=== PATIENT | male | born 1975 | race Caucasian/White ===

== ENCOUNTER 2025-06-11 10:42 | Outpatient (CLI) | payer OTHER, SELFPAY ==
--- OUTSIDE RECORDS SUMMARY | 2014-04-07 04:25 | XMS_ITS | Continuity of Care Document ---
Author Organization [facility] Address [address] [place] [address] [place] [address] Phone Care Team Providers Care Inspector Canvas Products Name Role Phone Nelson Wheeler MD Unavailable Unavailable Allergies, Adverse Reactions, Alerts Substance Reaction Status Criticality KETOROLAC TROMETHAMINE Active No In formation morphine Active No Information Medications Medication Instructions Dosage Effective Dates (start - stop) Status Comments [place] 5 mg-325 mg tablet take 1 tablet [...] Diagnoses Date Provider Providers Copied on Encounter [facility], [address] [place], [address], tel:[phone] [facility] No Information 4 Liam Damon. [address] [place], [address] , [place]. tel:[phone] Referring Provider: Nelson Wheeler, [address] [facility] [address], [place], [place], [address]. tel:[phone] OFFICE/OUTPA TIENT VISIT, EST [facility], [address], [place], [place], [address], tel:[phone] [facility] back pain (chief complaint) anxiety (chief complaint) LumbagoGeneralized anxiety disorder 4 Liam Damon. [address], [place], [place], [address] , [place]. [phone] Referring Provider: Nelson Wheeler, [address], [place], [place], [address]. tel:[phone] OFFICE/OUTPA TIENT VISIT, EST [facility], [address], [place], [place], [address], [place] tel:[phone] [facility] back pain (chief complaint) anxiety (chief complaint) LumbagoGeneralized anxiety disorder 0 4 Liam Damon. [address], [place], [place], [address] , [place]. [phone] Referring Provider: Pau [address], [place], [place], [address]. tel:[phone] PREV VISIT, NEW, AGE 18-39 [facility], [address], [place], [place], [address], [place] tel:[phone] [facility] Physical (chief complaint) Routine Medical ExamHeadacheFamily history of malignant neoplasm of gastrointestinal tractRoutine Medical ExamGoiter, unspecified 4 Liam Damon. [address], [place], [place], [address] , [place]. [phone] Family History Family Member Type Diagnosis Age At Onset Mother Problem (finding) thyroid Sister Problem (finding) Cancer - colon polyp Father Problem (finding) Cancer, colon Payers Payer name Insurance type Covered libertarian ID Authoriza tion(s) No Information Social History [...]
--- OUTSIDE RECORDS SUMMARY | 2024-12-27 12:23 | XMS_ITS | Continuity of Care Document ---
Author Organization [facility] Address [address] [place] [address] Phone Care Team Providers Care Morale Officer Name Role Phone Shyla Alva MD Unavailable Unavailable Advance Directives Directive Yes / No Effective Date File Name No Information Encounters Encounter Description Practice Location Reason(s) For Visit Diagnoses Date Provider Providers Copied on Encounter [facility], [address], [place], [place], [address], tel:[phone] [facility] No Information Nida Mansfield. [address] [place] [address], [id number], . tel:[phone] Family History Family Member Type Diagnosis Age At Onset No Information Payers Payer name Insurance type Covered alliance [...]
--- OUTSIDE RECORDS SUMMARY | 2025-02-15 08:00 | XMS_ITS ---
Author Organization [facility] Address [address] [facility] [address] [place] [address] Care Team Providers Care Upsetter Helper Name Role Phone Otoniel Mendez MD Primary Care Provider Andrew Grewal Unavailable [phone] REASON FOR VISIT Screening, 6ft1 200 Medications Medication SIG (Take, Route, Frequency, Duration) Notes Start Date End Date Status Pantoprazole Sodium 40 MG 1 tablet 1/2 t o 1 hour before morning meal and at night Orally twice a day for 30 day(s) 01/30/2025 Active Na Sulfate-K Sulfate-Mg Sulf 17.5-3.13-1.6 GM/177ML ML Orally Twice a day,Follow Physician Instructions. for 1 days 01/30/2025 Active amLODIPine Besylate Active Famotidine Active Losartan Potassium A ctive Omeprazole Active Pantoprazole Sodium Active Encounters Encounter Location Date Provider Diagnosis [facility] [address] [place] [address] 02/15/2025 Andrew Krishna Plan Of Treatment No Information Progress Notes * DIANE, Ti MoodyDOB:1974 (50 yo M)Acc No.[id number]:02/15/2025 Patient: Ti BALDERRAMA Provider: Fransisco Krishna D.O. :1975 A ge:49 Y S ex:Male Date:02/15/2025 Address:[address] [place] [address] [id number] Pcp:Otoniel Mendez MD Subjective: * Chief Complaints: * 1 . Screening, 6ft1 200. * Medical History: * Medications: T aking Omeprazole , Taking Pantoprazole Sodium , Taking Famotidine , Taking Losartan Potassium , Taking amLODIPine Besylate , Taking Pantoprazole Sodium 40 MG Tablet Delayed Release 1 tablet 1/2 to 1 hour before morning meal and at night Orally twice a day , Taking Na Sulfate-K Sulfate-Mg Sulf 17.5-3.13-1.6 GM/177ML Solution ML Orally Twice a day,Follow Physician Instructions. Objective: * Vitals: Assessment: Plan: * Treatment: * Images: * Electronic signature of Gene Krishna DO on 06/11/2025 at 01:06 PM CDT Sign off status: Pending * Provider: Fransisco Krishna D.O. Date: 0 02/15/2025 Generated for Steven pinto/Jono/Kris on: 0 06/11/2025 01:06 PM CDT
--- NOTE | 2025-06-11 11:23 | ECG_ITS ---
Test Date: 2025-06-11 11:35:39 Measurements Intervals [place] Rate: 90 P: -4 CA: 159 QRS: 17 QRSD: 102 T: 39 QT: 367 QTc: 449 Interpretive Statements SINUS RHYTHM NORMAL ELECTROCARDIOGRAM No previous ECG available for comparison Electronically Signed On 06-12-2025 15:44:35 CDT by Patrice Diaz M.D.
--- OUTSIDE RECORDS SUMMARY | 2025-06-11 13:06 | XMS_ITS | Clinical Summary ---
Author Organization [facility] Address [address] [place] [address] Care Team Providers Care Derrick Helper Name Role Phone Unavailable Primary Care Provider Unavailabl e Source Comments [facility] [employer],non-owned Affiliates and Associated Physician Practices is amultiple site organization consisting of ambulatory clinics and hospital sitesin [place], [place], [place] and [place]. This disclosure is being madepursuant to the Care Everywhere program and may not contain all information available regarding this patient. Last updated 18.[facility] [employer] Allergies No known active allergies Medications * Be aware that medications may not be up to date on this document. Alwaysverify current medications with the patient. oxyCODONE-aceta minophen (PERCOCET) 5-325 MG tablet Take 1 tablet by mouth every 8 hours as needed Earliest Fill Date: 04/28/19 9 tablet 04/28/2019 Active Active Problems Problem Noted Date Diagnosed Date Cellulitis of left upper extremity 04/21/2019 Swelling of left hand 04/21/2019 Infection of finger Family History Medical History Relation Name Comments Cancer - Colon Father Hypertension Father Cancer - Esophageal Paternal Grandfather Relation Name Status Comments Father Alive Paternal Grandfather Social History Tobacco Use Types Packs/Day Years Used Date Smoking Tobacco: Every Day Cigarettes 0.3 20 Smokeless Tobacco: Never Alcohol Use Standard Drinks/Week Comments No 0 (1 standard drink = 0.6 oz pur e alcohol) Sex and Gender Information Value Date Recorded Sex Assigned at Not on file Legal Sex Male 9:35 AM CDT Gender Identity Not on file Sexual Orientation Not on file Last Filed Vital Signs Vital Sign Reading Time Taken Comments Blood Pressure 134/100 04/28/2019 1:04 PM CDT Pulse 95 04/28/2019 8:55 AM CDT Temperature 36.8 C (98.2 F) 04/28/2019 8:55 AM CDT Respiratory Rate 18 04/28/2019 8:55 AM CDT Oxygen Saturation 98% 04/28/2019 8:55 AM CDT Inhaled Oxygen Concentration - - Weight 83.1 kg (183 lb 3.2 oz) 04/21/2019 5:57 P M CDT Height 185.4 cm (6' 1) 04/21/2019 5:57 PM CDT Body Mass Index 24.17 04/21/2019 5:57 PM CDT Plan of Treatment Health Maintenance Due Date Last Done Comments COLOGUARD (AGES 45-75) - COL ON CA SCREENING 1975 COLON MONITORING 1974 COLONOSCOPY - COLON CA SCREENING 1974 CT COLONOGRAPHY - COLON CA SCREENING 1975 Colorectal Cancer Screening 1974 FIT - COLON CA SCREENING 1974 FLEX SIG - COLON CA SCREENING 1974 LIPID TESTING 1974 HIV SCREENING 1989 HEPATITIS C SCREENING 03/28/1992 DTAP/TDAP/TD VACCINES (1 - Tdap) 1993 HEPATITIS B VACCINE (1 of 3 - 19+ 3-dose series) 1993 PNEUMOCOCCAL VACCINE 50+ (1 of 1 - PCV) 2024 ZOSTER VACCINE (1 of 2) 2024 COVID-19 VACCINE (1 - 2023-2 5 season) 2024 DEPRESSION SCREENING 10/03/2024 INFLUENZA VACCINE (#1) 2025 HIB VACCINE Aged Out No longer eligi ble based on patient's age to complete this topic HPV VACCINE Aged Out No longer eligi ble based on patient's age to complete this topic MENINGOCOCCAL (Group B) VACC INE SHARED DECISION-MAKING Aged Out No longer eligibl e based on patient's age to complete this topic MENINGOCOCCAL GROUPS A/C/Y/W VACCINE Aged Out No longer eligible b ased on patient's age to complete this topic Advance Directives * Full Code (Latest Code Status on File) Date Activated Date Inactivated Comments 04/21/2019 5:03 PM 04/28/2019 4:39 PM
--- OUTSIDE RECORDS SUMMARY | 2025-06-11 13:07 | XMS_ITS | Patient Health Record ---
Author Organization [employer] Address [address] [facility] [facility] [address] [place] [address] Care Team Providers Care Personal Consultant Name Role Phone Otoniel Mendez MD Primary Care Provider Andrew Grewal Unavailable [phone] Darlene De La Paz Unavailable [phone] Allergies No Known Allergies Results Component Value Reference Range Notes Pathology Report Reviewed date:02/18/2025 08:02:11 AM Interpretation: Performing Lab: Notes/Report: DIAGNOSES A. GE Junction Polyp, Biopsy: -Mild acute esophagitis (see comment). -Alcian blue/PAS stain highlights a thickened squamous basal layer; no fungal organisms seen. -No viral inclusions seen. -No glandular mucosa seen. -No significant eosinophils seen. -Negative for dysplasia and malignancy. COMMENTS A. A. A. In the absence of viral inclusions and fungal organisms, acute esophagitis may be seen in severe gastroesophageal reflux or pill esophagitis. CLINICAL HISTORY Suspected gastroesophageal reflux disease. Mucosal nodule found at the GEJ. GROSSING DESCRIPTION A. The specimen is received in a Formalin-filled container labeled with the patient's name and designated GE Junction Polyp It contains multiple fragments of boucher tissue that measure from <1x1x1 to 2x1x1 mm. The specimen was entirely submitted into a single cassette for processing. MICROSCOPIC DESCRIPTION Complete 100 microscopic examination is performed. The findings are included in the diagnosis rendered. Specimen A was evaluated with H&E stain. Specimen A was evaluated with Alcian Blue PAS stain. Textual Pathology Report SEE NOTES Reason For Referral No Information Medications Medication SIG (Take, Route, Frequency, Duration) Notes Start Date End Date Status Na Sulfate-K Sulfate-Mg Sulf 17.5-3.13-1.6 GM/177ML ML Orally Twice a day,Follow Physician Instructions. for 1 days 01/30/2025 Active amLODIPine Besylate Active Pantoprazole Sodium 40 MG 1 tablet 1/2 t o 1 hour before morning meal and at night Orally twice a day for 30 day(s) Active Omeprazole Active Pantoprazole Sodium Active Famotidine Active Losartan Potassium A ctive Social History Tobacco Use: Social History Observation Description Date Details (start date - stop date) Current Smoker NA - NA Tobacco Control (Standard) Question Answer Notes Tobacco use: Current every day smoker Problems Problem Type SNOMED Code ICD Code Onset Dates Problem Status W/U Status Risk Notes Problem Colon cancer screening (309645450) Colon cancer screening (Z12.11) Active confirmed His bowel movements are normal. He is overdue for screening colonoscopy. Problem Family History of Cancer of Colon (Situation) (492951530) Family history of colon cancer (Z80.0) Active confirmed He has a family history of colon cancer in his father and polyps in a sibling. Problem 91938738 Dysphagia (R13.10) Active confirmed He complains of dysphagia in his low esophagus. Differential diagnosis includes esophageal stricture, Schatzki's ring, esophageal dysmotility, or others. Problem Vomiting (842043933) Vomiting (R11.10) Active confirmed He is waking up vomiting at night due to uncontrolled GERD symptoms. Problem 160408577 Acid reflux (K21.9) Active confirmed Has had chronic GERD for years, which has not been controlled on his regimen of famotidine, pantoprazole, and omeprazole. He admits to drinking a lot of soda. He smokes. He also eats late at night before laying down. Vital Signs Height 73 in 01/30/2025 Weight 200 lbs 01/30/2025 BMI 26.38 kg/m2 01/30/2025 Procedures Procedure Date Ordered Date Performed Result Body Sit e EGD 01/30/2025 N/A Colonoscopy 01/30/2025 N/A Encounters Encounter Location Date Provider Diagnosis [facility], [address]over [address] [place] [phone] 01/30/2025 Darlene De La Paz Acid reflux K21.9 ; Dysphagia R13.10 ; Vomiting R11.10 ; Colon cancer screening Z12.11 and Family history of colon cancer Z80.0 [facility] [address] [place] [address] 02/12/2025 Andrew Krishna Acid reflux K21.9 [facility], [address] [place] [address] 01/30/2025 [facility] [place] [address] 02/15/2025 Andrew Krishna Assessments Encounter Date Diagnosis (ICD Code) Assessment Notes Treatment Notes Treatment Clinical Notes Section Notes 01/30/2025 Dysphagia (ICD-10 - R13.10) He complains of dysphagia in his low esophagus. Differential diagnosis includes esophageal stricture, Schatzki's ring, esophageal dysmotility, or others. 01/30/2025 Acid reflux (ICD-10 - K21.9) Has had chronic GERD for years, which has not been controlled on his regimen of famotidine, pantoprazole, and omeprazole. He admits to drinking a lot of soda. He smokes. He also eats late at night before laying down. 02/12/2025 Acid reflux (ICD-10 - K21.9) 01/30/2025 Vomiting (ICD-10 - R11.10) He is waking up vomiting at night due to uncontrolled GERD symptoms. 01/30/2025 Colon cancer screening (ICD-10 - Z12.11) His bowel movements are normal. He is overdue for screening colonoscopy. 01/30/2025 Family history of colon cancer (ICD-10 - Z80.0) He has a family history of colon cancer in his father and polyps in a sibling. 01/30/2025 Other After my visit with Mr. Davis, I recommend the followin. Reviewed GERD and its natural history, potential complications, and treatment options. He was encouraged to cut back on soda, smoking, and to leave a 3-hour window between eating and laying down at night. 2. He will begin taking pantoprazole 40 mg twice a day. 3. Schedule upper endoscopy. The procedure and its risk, benefits, alternatives, and indications were discussed with the patient. He verbalized understanding and wishes to proceed. 4. Schedule colonoscopy. The procedure and its risk, benefits, alternatives, and indications were discussed with the patient. He verbalizes understanding and wishes to proceed. Plan Of Treatment Pending Test Test Name Order Date EGD 01/30/2025 Colonoscopy 01/30/2025 Insurance Providers Payer Name Payer Address Payer Phone Subscriber Number Group Number Insured Name Patient Relationship to Insured Coverage Start Date Coverage End Date [employer] Pos E2 [address] [place] [address] [id number] Ti Davis Self - patient is the insured Medical (General) History Medical History History ICD Code GERD Hypertension Raynaud's Syndrome Surgical History Surgery Date(Month/Year) Tonsillectomy Left Hand Surgery
== END 2025-06-11 10:43 | disposition home or self-care (01) ==
PROVIDERS: PCP Family Medicine; Visit Provider Surgery
DX: Z01.812 Encounter for preprocedural laboratory examination (principal); I10 Essential (primary) hypertension; K40.90 Unilateral inguinal hernia, without obstruction or gangrene, not specified as recurrent
CPT/HCPCS: 36415; 86850; 86900; 86901; 93005

== ENCOUNTER 2025-06-13 00:06 | Day surgery (SDC) | payer OTHER, SELFPAY ==
--- OUTSIDE RECORDS SUMMARY | 2014-04-07 04:25 | XMS_ITS | Continuity of Care Document ---
Author Organization [facility] Address [address] [place] [address] [place] [address] Phone Care Team Providers Care Space Engineer Name Role Phone Nelson Wheeler MD Unavailable Unavailable Allergies, Adverse Reactions, Alerts Substance Reaction Status Criticality KETOROLAC TROMETHAMINE Active No In formation morphine Active No Information Medications Medication Instructions Dosage Effective Dates (start - stop) Status Comments [place] 5 mg-325 mg tablet take 1 tablet by oral route 2 times every day as needed for pain 1 tablet - Active PRN for pain, avoid driving or operate machines Procedures Procedure Date OFFICE/OUTPATIENT VISIT, EST OFFICE/OUTPATIENT VISIT, EST PREV VISIT, NEW, AGE 18-39 OFFICE/OUTPATIENT VISIT, NEW Advance Directives Directive Yes / No Effective Date File Name No Information Encounters Encounter Description Practice Location Reason(s) For Visit Diagnoses Date Provider Providers Copied on Encounter [facility], [address] [place], [id number], tel:[phone] [facility] No Information 4 Liam Damon. [address], [address], [address] , [place]. tel:[phone] Referring Provider: Nelson Wheeler, [address] [facility] A, [place], [place], [id number]. tel:[phone] OFFICE/OUTPA TIENT VISIT, EST [facility], [address], [place], [place], [id number], tel:[phone] [facility] back pain (chief complaint) anxiety (chief complaint) LumbagoGeneralized anxiety disorder 4 Liam Damon. [address], [address], [place], [place], [address] , [place]. [phone] Referring Provider: Nelson Wheeler, [address], [place], [place], [address]. tel:[phone] OFFICE/OUTPA TIENT VISIT, EST [facility], [address], [place], [place], [address], [place] tel:[phone] [facility] back pain (chief complaint) anxiety (chief complaint) LumbagoGeneralized anxiety disorder 0 4 Liam Damon. [address], [place], [place], [address] , [place]. tel: [phone] Referring Provider: Pau [address], [place], [place], [address]. tel:[phone] PREV VISIT, NEW, AGE 18-39 [facility], [address], [place], [place], [address], [place] tel:[phone] [facility] Physical (chief complaint) Routine Medical ExamHeadacheFamily history of malignant neoplasm of gastrointestinal tractRoutine Medical ExamGoiter, unspecified 4 Liam Damon. [address], [place], [place], [address] , [place]. [phone] Family History Family Member Type Diagnosis Age At Onset Mother Problem (finding) thyroid Sister Problem (finding) Cancer - colon polyp Father Problem (finding) Cancer, colon Payers Payer name Insurance type Covered alliance party ID Authoriza tion(s) No Information Social History Type Description Quantity Date Captured Comments Sex Male Smoking Status No Information Chief Complaint And Reason For Visit No Information Plan Of Treatment Date Type Action Status Goal Tobacco cessation counseling completed Goal Tobacco cessation counseling completed Referral Ordered: US THYROID ordered Referral Ordered: COLONOSCOPY AND BIOPSY ordered History Of Present Illness Encounter Date Complaint History Of Prese nt Illness No Information Instructions Date Instruction Additional Infor mation No Information Assessments Type Assessment Date No Information
--- OUTSIDE RECORDS SUMMARY | 2024-12-27 12:23 | XMS_ITS | Continuity of Care Document ---
Author Organization [facility] Address [address] [place] [address] Phone Care Team Providers Care Printed Forms Proofreader Name Role Phone Shyla Alva MD Unavailable Unavailable Advance Directives Directive Yes / No Effective Date File Name No Information Encounters Encounter Description Practice Location Reason(s) For Visit Diagnoses Date Provider Providers Copied on Encounter [facility], [address], [place], [place], [address], tel:[phone] [facility] No Information Nida Mansfield. [address] [place] [address], [id number], . tel:[phone] Family History Family Member Type Diagnosis Age At Onset No Information Payers Payer name Insurance type Covered libertarian ID Authoriza tion(s) No Information Social History Type Description Quantity Date Captured Comments Sex Male Smoking Status No Information Chief Complaint And Reason For Visit No Information Reason For Referral Reason For Referral No Information History Of Present Illness Encounter Date Complaint History Of Prese nt Illness No Information Functional Status Date Functional Assessmen t No Information Instructions Date Instruction Additional Infor mation No Information Assessments Type Assessment Date No Information Patient Care Teams Name Effective Dates (start - stop) Status Members No Information
--- OUTSIDE RECORDS SUMMARY | 2025-02-15 08:00 | XMS_ITS ---
Author Organization [facility] Address [address] [facility] [address] [place] [address] Care Team Providers Care Boring Machine Set Up Operator Name Role Phone Otoniel Mendez MD Primary Care Provider Andrew Grewal Unavailable [phone] REASON FOR VISIT Screening, 6ft1 200 Medications [...] Active Encounters Encounter Location Date Provider Diagnosis [facility] [address] [place] [address] 02/15/2025 Andrew Krishna Plan Of Treatment No Information Progress Notes * DIANE, Ti MoodyDOB:1974 (50 yo M)Acc No.[id number]:02/15/2025 Patient: Ti BALDERRAMA Provider: Fransisco Krishna D.O. :1975 A ge:49 Y S ex:Male Date:02/15/2025 Address:[address] [place] [address] [facility] Pcp:Otoniel Mendez MD Subjective: * Chief Complaints: [...] Electronic signature of Gene Krishna DO on 06/13/2025 at 12:09 AM CDT Sign off status: Pending * Provider: Fransisco Krishna D.O. Date: 0 02/15/2025 Generated for Steven pinto/Jono/Dylanitting on: 0 06/13/2025 12:09 AM CDT
[2025-06-07 15:19] VITALS: BMI 27.1
--- NOTE | 2025-06-07 15:26 | PC.NURSE ---
Report to the Outpatient Waiting Room, entrance under the green pavilion located off [facility], at time _1000_ on date _[phone]_. Planned Procedure Time: _1200_.? Time changes happen often and if your time is changed the preop area will call you the afternoon before. - You and your visitor will be asked to self-screen and do not enter if you have any COVID symptoms. Please call surgeon if you need to reschedule. - A mask is optional within the hospital at this time. Patients may have clear liquids (water, carbonated beverages, clear teas, apple juice) until 3 hours prior to surgery with a maximum of 20 ounces. - No food from midnight until time of surgery and no smoking, or chewing tobacco (or any form of nicotine). No chewing gum, candy or mints. Take only the following medications with a SIP of water on the morning of surgery: __Amlodipine____ DO NOT STOP ANY OF YOUR OTHER PRESCRIPTION MEDICATIONS PRIOR TO SURGERY EXCEPT THE FOLLOWING Hold all vitamins and supplements for 3 days per anesthesiologist. Medications to discontinue per physician Date to take last dose Please no make-up, nail mauritian, hairspray, perfume, deodorant, or body powder the day of surgery.? No jewelry (including any body piercings) or valuables the day of surgery, leave them at home.? Please take a shower or bath the night before, or the morning of, surgery with an antibacterial soap.? Wear comfortable, loose fitting clothing.? - Jewelry must be removed prior to entering the operating room.? Rings and piercings that are not removed may be cut off. - The hospital will not accept responsibility for valuables.? - Please leave all valuables, including medications, at home the day of surgery. If you are going home after surgery, a licensed local company intermodal truck driver must drive you home.? - NO public transportation without another adult if you receive anesthesia. - We recommend that an adult stay with you for 24 hours following discharge. - We also recommend that you do not drive, make important decision, drink alcoholic beverages, or take any drugs that were not prescribed by your health care provider for at least 24 hours after your discharge time. Follow any additional instructions given to you from your surgeon. Telephone instructions given to __Matt___and asked if any additional questions and then verbalized understanding. Patient advised to call surgeon office or pre surgery nurse liaison [phone] if any additional questions.
[2025-06-13] VITALS (14 sets, daily range): BP systolic 101–155; BP diastolic 65–99; PULSE 81–101; RESP 15–24; TEMP 36.2–36.6; O2SAT 92–100; BMI 26.0
--- OUTSIDE RECORDS SUMMARY | 2025-06-13 00:09 | XMS_ITS | Clinical Summary ---
Author Organization [facility] Address [address] [place] [address] Care Team Providers Care Director Search Marketing Strategies Name Role Phone Unavailable Primary Care Provider Unavailabl e Source Comments [facility],non-owned Affiliates and Associated Physician Practices is amultiple site organization consisting of ambulatory clinics and hospital sitesin [place], [place], [place] and [place]. This disclosure is being madepursuant to the Care Everywhere program and may not contain all information available regarding this patient. Last updated [email or web address] Allergies No known active allergies Medications * [...]
--- OUTSIDE RECORDS SUMMARY | 2025-06-13 00:10 | XMS_ITS | Patient Health Record ---
Author Organization [employer] Address [address] [facility] [address] [place] [address] Care Team Providers Care Health And Safety Instructor Name Role Phone Otoniel Mendez MD Primary Care Provider Andrew Grewal Unavailable [phone] Darlene De La Paz Unavailable [phone] Allergies No Known Allergies Results Component Value [...] Status Risk Notes Problem Colon cancer screening (782122269) Colon cancer screening (Z12.11) Active confirmed His bowel movements are normal. He is overdue for screening colonoscopy. Problem Family History of Cancer of Colon (Situation) (385723770) Family history of colon cancer (Z80.0) Active confirmed He has a family history of colon cancer in his father and polyps in a sibling. Problem 85040659 Dysphagia (R13.10) Active confirmed He complains of dysphagia in his low esophagus. Differential diagnosis includes esophageal stricture, Schatzki's ring, esophageal dysmotility, or others. Problem Vomiting (808020665) Vomiting (R11.10) Active confirmed He is waking up vomiting at night due to uncontrolled GERD symptoms. Problem 174043401 Acid reflux (K21.9) Active confirmed Has had [...] N/A Encounters Encounter Location Date Provider Diagnosis [facility], [address]over [address] [place] [address] 01/30/2025 Darlene De La Paz Acid reflux K21.9 ; Dysphagia R13.10 ; Vomiting R11.10 ; Colon cancer screening Z12.11 and Family history of colon cancer Z80.0 [facility] [address] [place] [address] 02/12/2025 Andrew Krishna Acid reflux K21.9 [facility], [address] [place] [address] 01/30/2025 Andrew Krishna [facility] [place] [place] [address] 02/15/2025 Andrew Krishna Assessments Encounter Date Diagnosis [...] Date [employer] Choice Pos E2 [address] [place] [address] [id number] Ti Davis Self - patient is the insured Medical (General) History Medical History History ICD Code GERD Hypertension Raynaud's Syndrome Surgical History Surgery Date(Month/Year) Tonsillectomy Left Hand Surgery
[2025-06-13] MEDS: LACTATED RINGERS 1,000 ML 30 ML IV CONT ×2 (10:30→15:39)
[2025-06-13] MEDS: ACETAMINOPHEN 500 MG TABLET 1000 MG PO (10:48)
--- NOTE | 2025-06-13 11:37 | WPDANESEPPF ---
Anes - Initial Pre Proc Eval Procedure: Operation Date: 06/13/25 12:00 Proposed Procedures p Robotic Assisted Laparoscopic Right Inguinal Hernia Repair with Mesh - Js Bowling MD Date/Time: 06/13/25 11:37 Surgeon: Js Bowling MD Pre Op Diagnosis: Reducible Right Inguinal Hernia Patient Data Age: 50 Gender: M Height: 1.85 m Weight: 89.5 kg Last Vital Signs Temp 36.6 C 06/13/25 10:41 Pulse 90 06/13/25 10:41 BP 155/99 H 06/13/25 10:41 Pulse Ox 98 06/13/25 10:41 O2 Del Method Room Air 06/13/25 10:41 Allergies Allergy/AdvReac Type Severity Reaction Status Date / Time ketorolac Allergy Mild Unknown Verified 06/13/25 10:37 morphine Allergy Unknown Unknown Verified 06/13/25 10:37 Home Medications ?Medication ?Instructions ?Recorded ?Confirmed ?Type amlodipine 10 mg tablet 10 mg PO DAILY 06/07/25 06/07/25 History losartan 100 mg tablet 100 mg PO DAILY 06/07/25 06/07/25 History pantoprazole 40 mg tablet,delayed 40 mg PO Q12H 06/07/25 06/07/25 History release Patient hx anesthesia problems: none Family hx anesthesia problems: none Results Review: All pre-operative results and documents have been reviewed as part of the pre-operative evaluation. [facility] Past Medical History Medical History Hypertension GERD (gastroesophageal reflux disease) Surgical History Surgical History History of partial knee replacement 2006 Right Knee Family History Family History Mother Depression Heart disease Sibling Depression Grandparent Heart disease Hypertension Father Hypertension Cerebrovascular accident Other Family history of cardiovascular disease Family history of mental disorder Social History Social History Years smoked: 20 Smoking status: Current every day smoker Tobacco type: cigarettes Alcohol intake: current Substance use type: marijuana Other substance usage details: Daily Do You Feel Safe in your Home?: Yes Lack of Transportation: No Lack of Food: Never True Current Housing: I Have Housing Concerned About Future Housing: No Difficulty Paying Gas/Electric Bills: No Difficulty Paying for Meds: No Currently Unemployed: No Education: High School Diploma/GED Difficulty w/ Childcare or Family Care: No Living arrangements: with family Spiritual care concerns: No Anes - Eval Final PreProcedure Day of Procedure 06/13/25 11:37 Patient weight: overweight Heart: regular rate and rhythm Lungs: clear to auscultation Airway: Mallampati scale class II Neurological: alert and oriented Last oral intake: >/= 8 hours ASA classification: III Emergent: no Anesthetic plan: proceed Anesthesia type and monitoring: general ETT and standard monitoring Results Review: All pre-operative results and documents have been reviewed as part of the pre-operative evaluation. Informed Consent: The patient's anesthetic plan and its attendant risks and benefits were discussed with the patient/family/POA. Questions were solicited and answers provided to the satisfaction of the patient/family/POA.
--- NOTE | 2025-06-13 12:12 | WPDHPUPDATE1 ---
History and Physical Update Update Date/Time: 06/13/25 12:12 History and Physical has been reviewed, including an updated exam of the patient. There are NO changes in the patient's condition. Risks, benefits, and alternatives have been discussed and questions answered. Patient agrees to proceed with procedure.
[2025-06-13] MEDS: ceFAZolin 2 GM in SODIUM CHLORIDE 0.9% IV 50 ML 100 ML IVPB (12:31)
[2025-06-13] MEDS: LIDO 1%/EPINEPHRINE 1:100,000 20 ML VIAL 30 ML INFILTRATE (12:56)
[2025-06-13] MEDS: BUPivacaine HCL 0.5% 10 ML AMP 30 ML INFILTRATE (12:57)
[2025-06-13] MEDS: fentaNYL CITRATE INJ (*CRX) 100 MCG/2 ML VIAL IV PUSH (15:30)
[2025-06-13] MEDS: fentaNYL CITRATE INJ (*CRX) 100 MCG/2 ML VIAL 25 MCG IV PUSH ×4 (15:58→16:28)
--- NOTE | 2025-06-13 16:19 | P.OP_ITS ---
Procedure Note - Detailed Date of Procedure 06/13/25 Pre-op Diagnosis Reducible Right Inguinal Hernia Post-op Diagnosis Same Procedure Performed Robotic assisted laparoscopic right inguinal hernia repair with Bard 3D mid weight mesh. Surgeon Js Bowling MD Picker Machine Operator BLAKE Hook Anesthesia General Indications Patient is a 50-year-old gentleman who presented with enlarging right inguinal bulge which was causing him to have pain. On examination a large right inguinal hernia which was reducible. No evidence of left inguinal hernia on exam. He presents now for a robotic assisted laparoscopic right inguinal hernia repair with Bard 3D mesh. Findings Patient very large indirect right inguinal hernia. No incarcerated contents within the inguinal canal hernia sac. No direct defect. Evidence of left inguinal hernia seen. Description of Procedure After informed consent was obtained patient brought to the operating room was placed supine position and general endotracheal anesthesia was administered. The abdomen and bilateral groin regions were then prepped and draped usual sterile fashion. Time-out was then performed correctly identifying the patient as well as procedure to be performed. Site marking was verified he was given perioperative IV antibiotics. I then entered the abdomen left upper quadrant utilizing a 5mm Optiview port. Once inside the abdomen insufflated to adequate pneumoperitoneum of 15mmHg of CO2. There were no adhesions to obscure my view of the periumbilical region or the bilateral groins and pelvis. The patient was then placed in 20? head-down Trendelenburg position to allow the bowel to fall out the pelvis. I could easily see that there was a large right indirect inguinal defect. There is no evidence of a direct defect. No evidence of left inguinal hernia seen either. I then placed additional robotic trocar ports across the mid abdomen under direct visualization. The 5mm bedside left upper quadrant trocar port was switched out to a 12mm trocar port. I then had the Gazzang Alexander robot brought to the patient's bedside and docked. The robotic arms were then attached robotic ports. Robotic instruments were then advanced into the abdomen under direct visualization. I then scrubbed out the procedure sent down the robotic console to perform the dissection. I 1st started by creating a preperitoneal flap starting just anterior medial to the right anterior superior iliac spine. It was carried a across lower abdomen to the midline and I divided the right side of the median umbilical ligament. This is all done robotic hook cautery. Continued dissection is preperitoneal plane identified the inferior epigastric vessels on the right side. I continued my dissection medially down to the pubic tubercle and the right side of the posterior wall the bladder was taken down and I entered the space of Retzius and dissected the space for couple cm. The pubic symphysis and right pubic tubercle were dissected out. I then proceeded to dissect down and reduce the very large indirect right inguinal hernia sac. With traction on the hernia sac I slowly dissected free from the surrounding cord structures with hook electrocautery. There was a cord lipoma which was reduced as well and this was dissected free the other cord structures with electrocautery. Eventually I was able to identify the testicular vessels and vas deferens. These were then dissected off of the large inguinal hernia sac extending down towards the scrotum. Once I had completely dissected the cord structures off the hernia sac I then everted the cord. I continued my dissection of the TM off of the vas deferens and testicular vessels until the dissection was carried up onto the psoas muscle and the vas deferens and testicular vessels diverged. At this point I felt I had and a proximal dissection of the preperitoneal flap that I could place a is extra-large a piece of Bard 3D mid weight mesh. A piece of mesh measuring [id number] was chosen which was oriented for the right groin region. Placed into the abdomen through the bedside guest services assistant port site and then it conformed to the dissected space. The mesh overlapped and cover the indirect, direct, and femoral spaces very nicely. The mesh extended down to the dissected space of Retzius. I then secured the mesh to the tissues around the pubic tubercle on the right side utilizing 2-0 Vicryl sutures placed robotically. Laterally, anterior medial to the right anterior suprailiac spine I placed another suture to secure the lateral portion of the mesh. The sutures then placed to approximate the mesh to the transversalis fascia at the potential direct space. There was a large dilation of the internal ring and so I placed another 0 Vicryl suture to secure the mesh to the edge of the dilated internal the mesh laid out very nicely without any tension. It adequately cover the home myopectineal orifice. I then proceeded to close the peritoneal flap. This was done with a running 2-0 absorbable V lock suture. The very large redundant hernia sac was tacked up with the closure of the flap. I then proceeded to undock the robot and have on the robotic instruments removed from the abdomen. Prior to this I placed the resected cord lipoma into an Endo-Catch bag and brought the bag up to the left upper quadrant trocar port site. Once I scrubbed back in I then removed the resected cord lipomas from the Endo-Catch bag and these were discarded. I then placed 0 Vicryl sutures transfascially with the suture assist device on the umbilical port site, right lower quadrant port site, and a 12mm left upper quadrant trocar port site. Port sites were then anesthetized 1% lidocaine mixed with 0.5% Marcaine with some epinephrine. The enclosed skin level utilizing a running subcuticular 4 Monocryl suture. The incisions were then cleaned the skin glue was applied. The patient tolerated the procedure well no complications. All sponges, needles, and instrument counts were correct at the end procedure. EBL was _25__cc. The patient was awakened and taken to recovery in stable and satisfactory condition. Implants Bard 3D mid weight mesh [id number] oriented for right side Estimated Blood Loss 25 Drains No Packing No Pathology None sent Complications No immediate complications Condition Stable Disposition PACU [facility] Billing Surgery - Charge Forward: Surgery Billing
[2025-06-13] MEDS: oxyCODONE HCL (*CRX) 5 MG TAB IR PO (17:06)
== END 2025-06-13 17:28 | disposition home or self-care (01) ==
PROVIDERS: PCP Family Medicine; Visit Provider Surgery
PROC: 8E0Y4CZ Robotic Assisted Procedure of Lower Extremity, Percutaneous Endoscopic Approach (ICD-10-PCS; CPT 49650; principal; 2025-06-13 12:00)
DX: K40.90 Unilateral inguinal hernia, without obstruction or gangrene, not specified as recurrent (principal); I10 Essential (primary) hypertension; K21.9 Gastro-esophageal reflux disease without esophagitis; F12.90 Cannabis use, unspecified, uncomplicated; F17.210 Nicotine dependence, cigarettes, uncomplicated; Z98.890 Other specified postprocedural states; Z82.49 Family history of ischemic heart disease and other diseases of the circulatory system
CPT/HCPCS: 49650; S2900; 36415; 86850; 86900; 86901; 93005; J0690; A9270; C1781; J2003; J2004; J2250; J2405; J2704; J3010; J7030; J7120